=== PATIENT | female | born 1995 | race Caucasian/White ===

== ENCOUNTER 2019-10-27 07:21 | Day surgery (SDC) | payer BC ==
[~2019-10-27 07:21] MED LIST: Lactated Ringers 1,000 ML IV SCH
[2019-10-27] MEDS ORDERED: DIPRIVAN 200 MG/20 ML IV ONE (09:37)
[2019-10-27] MEDS ORDERED: Ketamine HCl 50 MG/ML ONE (09:37)
[2019-10-27] MEDS ORDERED: Xylocaine-Mpf 2% 5 Ml Vial ONE (09:37)
[2019-10-27 10:53] VITALS: O2SAT 99
[2019-10-27 11:06] VITALS: BP 145/60; PULSE 71
--- NOTE | 2019-10-27 12:51 | OP ---
SURGERY DATE/TIME: 10/27/2019 0935 PREOPERATIVE DIAGNOSIS: Abdominal pain. POSTOPERATIVE DIAGNOSES: 1) Abdominal pain. 2) Very small sliding hiatal hernia less than 1 cm. 3) Anal fistula. PROCEDURES: 1) EGD. 2) Colonoscopy. SURGEON: Jack Wong M.D. ANESTHESIA: MAC. SPECIMENS: 1) Duodenum; rule out celiac. 2) Random colon biopsy. 3) Stool for Clostridium difficile, culture, ova and parasite. HISTORY: The patient is a 24 year-old female describing periumbilical-abdominal pain. She also has some heartburn and reflux. She describes constipation alternating with diarrhea up to five loose stools per day. She actually had improvement of her symptoms during the bowel prep. The patient elected to proceed. FINDINGS: 1) Very small, less than 1 cm sliding hiatal hernia. EGD otherwise normal. 2) Colonoscopy normal in appearance. Terminal ileum was normal. Random colonic biopsies were taken. There was a small, what looked like anal fistula, that was very superficial. DESCRIPTION OF PROCEDURE: The patient was brought to the endoscopy suite. MAC anesthesia was induced. Endoscope was advanced in the mouth, advanced to the third portion of duodenum. Duodenum was totally normal. Duodenal biopsy was taken to rule out celiac. The antrum was normal. There was normal stomach. The scope was retroflexed. There was a tiny, less than 1 cm sliding hiatal hernia. The gastroesophageal junction looked normal. The scope was withdrawn. The esophagus was normal. The patient was repositioned. Anal exam was performed. Externally she had some skin tags and a very superficial appearing fistula. Digital rectal exam otherwise was normal. Colonoscope was inserted. This was advanced all the way to the terminal ileum. Terminal ileum was normal. Scope was withdrawn greater than 6 minutes. Random biopsies were taken throughout the colon, sigmoid, rectum and sent for pathology. Stool sample was also taken and sent for stool studies. The entire examined colon was normal. There was good preparation. The patient tolerated the procedure well and taken to recovery room in good condition.
[2019-10-27 15:29] LABS: 027 TOX PROD PRESUMPTIVE NEGATIVE (NEGATIVE); TOXIGENIC C. DIFF ORG NEGATIVE (NEGATIVE)
[2019-10-29 12:47] LABS: Source: Feces
[2019-10-29 14:13] LABS: Giardia Antigen EIA Negative (Negative)
== END 2019-10-27 11:05 | disposition home or self-care (01) ==
LOC: SDC 07:21
PROVIDERS: ATTEND Surgery
DX: R10.9 Unspecified abdominal pain (principal); K44.9 Diaphragmatic hernia without obstruction or gangrene; K60.4 Rectal fistula; R12 Heartburn; R14.0 Abdominal distension (gaseous)
CPT/HCPCS: 36415; 84703; 87045; 87046; 87177; 87209; 87335; 87493; 88305; J2704

== ENCOUNTER 2020-10-12 15:50 | Observation (INO) | payer OTHER ==
[2020-10-12 16:37] LABS: Absolute Neutrophil Ct (ANC) 7.46 (1.4-6.9); BASOPHIL % 0.2 % (0.0-0.4); Basophil (Absolute #) 0.02 (0-0.4); Eosinophil % 2.6 % (0.00-5.0); Eosinophil (Absolute #) 0.25 (0-0.5); Hematocrit 36.7 % (35-47); Lymphocyte (Absolute #) 1.31 (1.0-4.6); Lymphocytes % 13.6 % (24.0-44.0); Mean Cell Volume 96.6 fl (78-100); Mean Corpuscular Hemoglobin 31.6 pg (26-32); Mean Corpuscular Hgb Concent. 32.7 g/dl (32-36); Mean Platelet Volume 11.4 fl (7.5-11.0); Monocyte (Absolute #) 0.58 (0.0-1.3); Neutrophil % 77.6 % (36.0-66.0); Platelet Count 171 K/mm3 (150-450); Red Cell Distribution Width 13.5 % (11.5-14.0); White Blood Count 9.6 K/mm3 (4.0-10.5)
[2020-10-12 16:54] LABS: Amphetamine,Urine NEGATIVE (NEGATIVE); Barbiturate,Urine NEGATIVE (NEGATIVE); Benzodiazepine,Urine NEGATIVE (NEGATIVE); Cocaine,Urine NEGATIVE (NEGATIVE); Methadone,Urine NEGATIVE (NEGATIVE); Opiate,Urine NEGATIVE (NEGATIVE); PCP,Urine NEGATIVE (NEGATIVE); THC,Urine NEGATIVE (NEGATIVE)
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
[2020-10-12 17:17] VITALS: BP 129/67; PULSE 87; O2SAT 100
== END 2020-10-12 18:19 | disposition home or self-care (01) ==
LOC: OB 15:50
PROVIDERS: ADMIT Obstetrics & Gynecology; ATTEND Obstetrics & Gynecology
DX: Z34.02 Encounter for supervision of normal first pregnancy, second trimester (principal); Z3A.21 21 weeks gestation of pregnancy; V49.9XXA Car occupant (driver) (passenger) injured in unspecified traffic accident, initial encounter
CPT/HCPCS: 36415; 76816; 80307; 85025

== ENCOUNTER 2021-01-23 13:56 | Observation (INO) | payer OTHER, SELFPAY ==
[2021-01-23 14:44] LABS: Hemoglobin 12.6 gm/dl (12.0-16.0); Mean Cell Volume 94.2 fl (78-100); Mean Corpuscular Hemoglobin 30.4 pg (26-32); Mean Corpuscular Hgb Concent. 32.3 g/dl (32-36); Platelet Count 169 K/mm3 (150-450); Red Blood Count 4.14 M/mm3 (4.1-5.4); White Blood Count 11.7 K/mm3 (4.0-10.5)
--- NOTE | 2021-01-23 15:12 | XRAY ---
Indication: -induced hypertension. Ultrasound biophysical profile exam performed. Single intrauterine with heart rate 120 BPM. Incidental partial nuchal cord. Four-quadrant THOMAS is 5.1 cm. 2 points given for breathing, movements, tone, and qualitative amniotic fluid volume. Impression: Total biophysical profile score 8 out of 8. Incidental partial nuchal cord.
[2021-01-23 17:15] LABS: ALBUMIN 3.6 g/dL (3.5-5.0); ALKALINE PHOSPHATASE 141 U/L (38-126); ANION GAP 13.3 MEQ/L (5-15); BLOOD UREA NITROGEN 9 mg/dL (7-17); CHLORIDE 105 mmol/L (98-107); Calcium 9.1 mg/dL (8.4-10.2); Carbon Dioxide 22 mmol/L (22-30); Creatinine 1 0.71 mg/dL (0.52-1.04); EST GLOMERULAR FILTRATION RATE > 60.0 ML/MIN; Glucose 84 mg/dL (74-106); SGOT/AST 20 U/L (14-36); SGPT/ALT 14 U/L (0-35); SODIUM 136 mmol/L (137-145); Total Protein 6.6 g/dL (6.3-8.2); Uric Acid 5.4 mg/dL (2.6-6.0)
[2021-01-23 18:05] LABS: Creatinine, Urine Random 115.4 mg/dl
[2021-01-23 20:03] VITALS: BP 140/77; PULSE 78
== END 2021-01-23 17:05 | disposition home or self-care (01) ==
LOC: OB 13:56 → UNDOADMOB 13:56 → UNDODISOB 17:05
PROVIDERS: ADMIT Family Medicine; ATTEND Family Medicine
DX: Z34.83 Encounter for supervision of other normal pregnancy, third trimester (principal)
CPT/HCPCS: 36415; 59025; 76818; 80053; 82570; 84156; 84550; 85027; G0378

== ENCOUNTER 2021-01-25 15:23 | Observation (INO) | payer OTHER, SELFPAY ==
[2021-01-25 16:27] VITALS: BP 133/77; PULSE 83; O2SAT 98
--- NOTE | 2021-01-25 16:28 | XRAY ---
Indication: Oligohydramnios. Limited OB ultrasound performed to evaluate THOMAS. Single intrauterine with heart rate 178 BPM. Four-quadrant THOMAS is 7.8 cm, previously 5.1 cm on January 23, 2021.
== END 2021-01-25 17:00 | disposition home or self-care (01) ==
LOC: OB 15:23
PROVIDERS: ADMIT Family Medicine; ATTEND Family Medicine
DX: Z34.03 Encounter for supervision of normal first pregnancy, third trimester (principal); Z3A.36 36 weeks gestation of pregnancy
CPT/HCPCS: 59025; 76815; G0378

== ENCOUNTER 2021-01-30 10:58 | Observation (INO) | payer OTHER, SELFPAY ==
[2021-01-30 12:02] LABS: Absolute Neutrophil Ct (ANC) 7.24 (1.4-6.9); BASOPHIL % 0.2 % (0.0-0.4); Basophil (Absolute #) 0.02 (0-0.4); Eosinophil % 4.9 % (0.00-5.0); Eosinophil (Absolute #) 0.49 (0-0.5); Hematocrit 37.8 % (35-47); Hemoglobin 12.2 gm/dl (12.0-16.0); Lymphocyte (Absolute #) 1.46 (1.0-4.6); Lymphocytes % 14.6 % (24.0-44.0); Mean Cell Volume 93.8 fl (78-100); Mean Corpuscular Hemoglobin 30.3 pg (26-32); Mean Corpuscular Hgb Concent. 32.3 g/dl (32-36); Mean Platelet Volume 11.8 fl (7.5-11.0); Monocyte (Absolute #) 0.77 (0.0-1.3); Monocytes % 7.7 % (0.0-12.0); Neutrophil % 72.6 % (36.0-66.0); Platelet Count 152 K/mm3 (150-450); Red Blood Count 4.03 M/mm3 (4.1-5.4); Red Cell Distribution Width 14.2 % (11.5-14.0)
[2021-01-30 12:21] LABS: ALBUMIN 3.2 g/dL (3.5-5.0); ALKALINE PHOSPHATASE 129 U/L (38-126); ANION GAP 10.9 MEQ/L (5-15); BLOOD UREA NITROGEN 5 mg/dL (7-17); CHLORIDE 107 mmol/L (98-107); Calcium 8.5 mg/dL (8.4-10.2); Carbon Dioxide 20 mmol/L (22-30); Creatinine 1 0.58 mg/dL (0.52-1.04); EST GLOMERULAR FILTRATION RATE > 60.0 ML/MIN; Glucose 84 mg/dL (74-106); Potassium 3.8 mmol/L (3.5-5.1); SGOT/AST 16 U/L (14-36); SGPT/ALT 13 U/L (0-35); SODIUM 134 mmol/L (137-145); Total Protein 5.9 g/dL (6.3-8.2); Uric Acid 4.9 mg/dL (2.6-6.0)
--- NOTE | 2021-01-30 12:22 | XRAY ---
Indication: well-being. Comparison: January 23, 2021. Ultrasound biophysical profile exam performed. Single intrauterine with heart rate 154 BPM. Four-quadrant THOMAS is 7.8 cm, largest pocket 4 cm. 2 points given for breathing, movements, tone, and qualitative amniotic fluid volume. Impression: Total biophysical profile score remains 8 out of 8.
[2021-01-30 12:44] LABS: Creatinine, Urine Random 54.8 mg/dl
[2021-01-30 13:04] LABS: Amphetamine,Urine NEGATIVE (NEGATIVE); Barbiturate,Urine NEGATIVE (NEGATIVE); Benzodiazepine,Urine NEGATIVE (NEGATIVE); Cocaine,Urine NEGATIVE (NEGATIVE); Methadone,Urine NEGATIVE (NEGATIVE); Opiate,Urine NEGATIVE (NEGATIVE); PCP,Urine NEGATIVE (NEGATIVE); THC,Urine NEGATIVE (NEGATIVE)
[2021-01-30 16:41] VITALS: BP 135/80; PULSE 81; O2SAT 97
== END 2021-01-30 14:00 | disposition home or self-care (01) ==
LOC: OB 10:58
PROVIDERS: ADMIT Family Medicine; ATTEND Family Medicine
DX: O99.213 Obesity complicating pregnancy, third trimester (principal); Z3A.36 36 weeks gestation of pregnancy
CPT/HCPCS: 36415; 59025; 76818; 80053; 80307; 82570; 84156; 84550; 85025; 87081; G0378

== ENCOUNTER 2021-02-02 09:46 | Observation (INO) | payer OTHER, SELFPAY ==
[2021-02-02 10:14] VITALS: BP 138/65; PULSE 75
== END 2021-02-02 10:25 | disposition home or self-care (01) ==
LOC: OB 09:46
PROVIDERS: ADMIT Family Medicine; ATTEND Family Medicine
DX: O99.213 Obesity complicating pregnancy, third trimester (principal); Z3A.37 37 weeks gestation of pregnancy
CPT/HCPCS: 59025; G0378

== ENCOUNTER 2021-02-06 10:09 | Observation (INO) | payer OTHER, SELFPAY ==
[2021-02-06 11:24] VITALS: BP 136/78; PULSE 74
--- NOTE | 2021-02-06 11:30 | XRAY ---
Indication: well-being. Comparison: January 30, 2021. Ultrasound biophysical profile exam performed. Again single intrauterine with heart rate 150 BPM. Four-quadrant THOMAS is 8.8 cm, largest pocket 3.6 cm. 2 points given for breathing, movements, tone, and qualitative amniotic fluid volume. Impression: Total biophysical profile score remains 8 out of 8.
[2021-02-06 12:28] LABS: Absolute Neutrophil Ct (ANC) 6.63 (1.4-6.9); BASOPHIL % 0.3 % (0.0-0.4); Basophil (Absolute #) 0.03 (0-0.4); Eosinophil % 3.7 % (0.00-5.0); Eosinophil (Absolute #) 0.33 (0-0.5); Hematocrit 36.4 % (35-47); Hemoglobin 11.9 gm/dl (12.0-16.0); Lymphocyte (Absolute #) 1.37 (1.0-4.6); Lymphocytes % 15.2 % (24.0-44.0); Mean Cell Volume 93.8 fl (78-100); Mean Corpuscular Hemoglobin 30.7 pg (26-32); Mean Corpuscular Hgb Concent. 32.7 g/dl (32-36); Mean Platelet Volume 12.3 fl (7.5-11.0); Monocyte (Absolute #) 0.68 (0.0-1.3); Monocytes % 7.5 % (0.0-12.0); Neutrophil % 73.3 % (36.0-66.0); Platelet Count 162 K/mm3 (150-450); Red Blood Count 3.88 M/mm3 (4.1-5.4); Red Cell Distribution Width 14.1 % (11.5-14.0)
[2021-02-06 12:29] LABS: Creatinine, Urine Random 52.3 mg/dl
[2021-02-06 12:53] LABS: ALBUMIN 3.2 g/dL (3.5-5.0); ALKALINE PHOSPHATASE 133 U/L (38-126); ANION GAP 13.4 MEQ/L (5-15); BLOOD UREA NITROGEN 9 mg/dL (7-17); CHLORIDE 105 mmol/L (98-107); Carbon Dioxide 21 mmol/L (22-30); Creatinine 1 0.69 mg/dL (0.52-1.04); EST GLOMERULAR FILTRATION RATE > 60.0 ML/MIN; Glucose 75 mg/dL (74-106); Potassium 4.3 mmol/L (3.5-5.1); SGOT/AST 25 U/L (14-36); SGPT/ALT 12 U/L (0-35); SODIUM 135 mmol/L (137-145)
== END 2021-02-06 13:15 | disposition home or self-care (01) ==
LOC: OB 10:09
PROVIDERS: ADMIT Family Medicine; ATTEND Family Medicine
DX: O99.213 Obesity complicating pregnancy, third trimester (principal); Z3A.37 37 weeks gestation of pregnancy
CPT/HCPCS: 36415; 59025; 76819; 80053; 82570; 84156; 84550; 85025; G0378

== ENCOUNTER 2021-05-18 03:04 | Emergency (ER) | payer BC, OTHER, SELFPAY ==
[2021-05-18] MEDS ORDERED: DECADRON 10MG INJ. IV ONE (03:48)
--- NOTE | 2021-05-18 04:00 | ERPHSYRPT ---
<CAREY VALENCIA - Last Filed: 05/18/21 08:34> - History of Present Illness Source: patient Exam Limitations: no limitations Timing/Duration: week(s) (1), constant, gradual onset, worse Cough Quality/Degree: moderate, dry cough Possible Cause: illness exposure Modifying Factors: Worsens With: coughing, deep breath, exertion Associated Symptoms: fever, chills, chest pain/soreness, cough, headache, nasal congestion, shortness of breath, sinus infection, sore throat <ALCON GARCIA - Last Filed: 05/19/21 21:12> - History of Present Illness Time Seen by Provider: 05/18/21 03:46 Physician History: 26-year-old female with history of hypothyroidism, unvaccinated for COVID-19 pr esented in the ER with 1 week history of flulike symptoms with generalized body aches fatigue tiredness, low-grade fever chills, nonproductive cough and now having chest tightness with some pressure and pain in the shoulder blade area. Patient has history of asthma and has been using breathing treatment with some help. She has loose stool but no nausea or vomiting. Denies any abdominal pain. (ALCON GARCIA) Allergies/Adverse Reactions: egg Allergy (Severe, Verified 05/18/21 04:04) Difficulty Breathing Triggers Asthma Home Medications: Levothyroxine Sodium 100 Mcg [Synthroid 100 Mcg] 200 mcg PO DAILY 10/12/20 [History] Albuterol Sulfate [Albuterol Sulfate Hfa] 2 puffs IH Q4-6HPRN PRN 05/18/21 [History] Travel Risk - Vaccine Status Have you recieved a Covid-19 vaccination: No <ALCON GARCIA - Last Filed: 05/19/21 21:12> - Review of Systems Constitutional: Fever, Chills, Fatigue, Weakness Eyes: No Symptoms Ears, Nose, & Throat: Nose Congestion, Throat Swelling Respiratory: Cough, Dyspnea, Wheezing Cardiac: Chest Pain Abdominal/Gastrointestinal: Diarrhea Genitourinary Symptoms: No Symptoms Musculoskeletal: Myalgias Neurological: Headache Psychological: No Symptoms Endocrine: No Symptoms Hematologic/Lymphatic: No Symptoms Immunological/Allergic: No Symptoms <ALCON GARCIA - Last Filed: 05/19/21 21:12> - Past Medical History Pertinent Past Medical History: Yes Neurological History: No Pertinent History ENT History: No Pertinent History Cardiac History: No Pertinent History, High Cholesterol Respiratory History: Asthma Endocrine Medical History: Hypothyroidism Musculoskeletal History: No Pertinent History GI Medical History: GERD History: No Pertinent History Psycho-Social History: Anxiety Female Reproductive Disorders: No Pertinent History - Past Surgical History Past Surgical History: Yes Neuro Surgical History: No Pertinent History Cardiac: No Pertinent History Respiratory: No Pertinent History Gastrointestinal: No Pertinent History Genitourinary: No Pertinent History Musculoskeletal: No Pertinent History Female Surgical History: No Pertinent History Other Surgical History: thyroidectomy - Social History Smoking Status: Never smoker Exposure to second hand smoke: No Drug Use: none - Female History Hx Now: (unkn) <ALCON GARCIA - Last Filed: 05/19/21 21:12> - Physical Exam General Appearance: no apparent distress, alert Eye Exam: PERRL/EOMI, eyes nml inspection Ears, Nose, Throat Exam: moist mucous membranes, pharyngeal erythema Neck Exam: normal inspection, non-tender, supple, full range of motion Respiratory Exam: diminished breath sounds, rhonchi, wheezing Cardiovascular Exam: regular rate/rhythm, normal heart sounds Gastrointestinal/Abdomen Exam: soft, normal bowel sounds, No tenderness Back Exam: normal inspection, normal range of motion Extremity Exam: normal inspection, normal range of motion Neurologic Exam: alert, oriented x 3, cooperative Skin Exam: normal color SpO2 Interpretation: normal SpO2: 97 O2 Delivery: Room Air <ALCON GARCIA - Last Filed: 05/19/21 21:12> - Nursing Vital Signs Nursing Vital Signs: Initial Vital Signs Temperature 97.8 F 05/18/21 03:04 Pulse Rate 91 H 05/18/21 03:04 Respiratory Rate 22 05/18/21 03:04 Blood Pressure 119/66 05/18/21 03:04 O2 Sat by Pulse Oximetry 97 05/18/21 03:04 Pain Scale Pain Intensity 0 - Course EKG Interpreted by Me: RATE (95), Sinus Rhythm, NORMAL AXIS, NORMAL INTERVALS, Non-specific ST Changes <ALCON GARCIA - Last Filed: 05/19/21 21:12> Ordered Tests: Medication Summary Discontinued Medications Generic Name Dose Route Start Last Admin Trade Name Freq PRN Reason Stop Dose Admin Dexamethasone Sodium Phosphate 6 mg 05/18/21 03:48 05/18/21 04:11 Dexamethasone Sod Phosphate 10 Mg/Ml IV 05/18/21 03:49 6 mg STAT ONE Administration Dexamethasone Sodium Phosphate Confirm 05/18/21 04:09 Dexamethasone Sod Phosphate 10 Mg/Ml Administered 05/18/21 04:10 Dose 10 mg .ROUTE .STK-MED ONE Sodium Chloride 500 mls @ 500 mls/hr 05/18/21 07:13 05/18/21 08:37 Sodium Chloride 0.9% 500 Ml IV 05/18/21 08:12 Infused .Q1H ONE Infusion Sodium Chloride Confirm 05/18/21 07:15 Sodium Chloride 0.9% 500 Ml Administered 05/18/21 07:16 Dose 500 mls @ ud IV .STK-MED ONE Lab/Rad Data: Laboratory Result Diagrams 05/18/21 03:52 05/18/21 03:52 Laboratory Results 05/18/21 05/18/21 05/18/21 Range/Units 07:30 04:00 03:52 WBC (4.0-10.5) K/mm3 RBC (4.1-5.4) M/mm3 Hgb (12.0-16.0) gm/dl Hct (35-47) % MCV (78-100) fl MCH (26-32) pg MCHC (32-36) g/dl RDW (11.5-14.0) % Plt Count (150-450) K/mm3 MPV (7.5-11.0) fl Gran % (36.0-66.0) % Eos # (Auto) (0-0.5) Absolute Lymphs (auto) (1.0-4.6) Absolute Monos (auto) (0.0-1.3) Lymphocytes % (24.0-44.0) % Monocytes % (0.0-12.0) % Eosinophils % (0.00-5.0) % Basophils % (0.0-0.4) % Absolute Granulocytes (1.4-6.9) Basophils # (0-0.4) D-Dimer (215-500) ng/mL Sodium (137-145) mmol/L Potassium (3.5-5.1) mmol/L Chloride (98-107) mmol/L Carbon Dioxide (22-30) mmol/L Anion Gap (5-15) MEQ/L BUN (7-17) mg/dL Creatinine (0.52-1.04) mg/dL Estimated GFR ML/MIN Glucose (74-106) mg/dL Lactic Acid (0.4-2.0) Calcium (8.4-10.2) mg/dL Magnesium (1.6-2.3) mg/dL Total Bilirubin (0.2-1.3) mg/dL AST (14-36) U/L ALT (0-35) U/L Alkaline Phosphatase (38-126) U/L Troponin I < 0.012 < 0.012 (0.000-0.034) ng/mL Serum Total Protein (6.3-8.2) g/dL Albumin (3.5-5.0) g/dL Urine Color (YELLOW) Urine Appearance (CLEAR) Urine pH (5-6) Ur Specific [place] (1.005-1.025) Urine Protein (Negative) Urine Ketones (NEGATIVE) Urine Blood (0-5) Bradford/ul Urine Nitrite (NEGATIVE) Urine Bilirubin (NEGATIVE) Urine Urobilinogen (0-1) mg/dL Ur Leukocyte Esterase (NEGATIVE) Urine WBC (Auto) (0-5) /HPF Urine RBC (Auto) (0-2) /HPF U Epithel Cells (Auto) (FEW) /HPF Urine Bacteria (Auto) (NEGATIVE) /HPF Urine Culture Reflexed (NO) Urine Glucose (NEGATIVE) mg/dL Urine HCG, Qual NEGATIVE (Negative) Influenza Type A Ag NEGATIVE (NEGATIVE) Influenza Type B Ag NEGATIVE (NEGATIVE) 05/18/21 05/18/21 05/18/21 Range/Units 03:52 03:52 03:52 WBC (4.0-10.5) K/mm3 RBC (4.1-5.4) M/mm3 Hgb (12.0-16.0) gm/dl Hct (35-47) % MCV (78-100) fl MCH (26-32) pg MCHC (32-36) g/dl RDW (11.5-14.0) % Plt Count (150-450) K/mm3 MPV (7.5-11.0) fl Gran % (36.0-66.0) % Eos # (Auto) (0-0.5) Absolute Lymphs (auto) (1.0-4.6) Absolute Monos (auto) (0.0-1.3) Lymphocytes % (24.0-44.0) % Monocytes % (0.0-12.0) % Eosinophils % (0.00-5.0) % Basophils % (0.0-0.4) % Absolute Granulocytes (1.4-6.9) Basophils # (0-0.4) D-Dimer 501 H (215-500) ng/mL Sodium 136 L (137-145) mmol/L Potassium 3.8 (3.5-5.1) mmol/L Chloride 107 (98-107) mmol/L Carbon Dioxide 19 L (22-30) mmol/L Anion Gap 13.4 (5-15) MEQ/L BUN 6 L (7-17) mg/dL Creatinine 0.86 (0.52-1.04) mg/dL Estimated GFR > 60.0 ML/MIN Glucose 123 H (74-106) mg/dL Lactic Acid (0.4-2.0) Calcium 7.9 L (8.4-10.2) mg/dL Magnesium 2.0 (1.6-2.3) mg/dL Total Bilirubin 0.70 (0.2-1.3) mg/dL AST 30 (14-36) U/L ALT 18 (0-35) U/L Alkaline Phosphatase 91 (38-126) U/L Troponin I (0.000-0.034) ng/mL Serum Total Protein 7.1 (6.3-8.2) g/dL Albumin 4.0 (3.5-5.0) g/dL Urine Color YELLOW (YELLOW) Urine Appearance SLIGHTLY CLOUDY (CLEAR) Urine pH 6.0 (5-6) Ur Specific [place] 1.009 (1.005-1.025) Urine Protein 30 (Negative) Urine Ketones NEGATIVE (NEGATIVE) Urine Blood LARGE (0-5) Bradford/ul Urine Nitrite NEGATIVE (NEGATIVE) Urine Bilirubin NEGATIVE (NEGATIVE) Urine Urobilinogen NEGATIVE (0-1) mg/dL Ur Leukocyte Esterase NEGATIVE (NEGATIVE) Urine WBC (Auto) 26-50 (0-5) /HPF Urine RBC (Auto) >101 (0-2) /HPF U Epithel Cells (Auto) RARE (FEW) /HPF Urine Bacteria (Auto) FEW (NEGATIVE) /HPF Urine Culture Reflexed YES (NO) Urine Glucose NEGATIVE (NEGATIVE) mg/dL Urine HCG, Qual (Negative) Influenza Type A Ag (NEGATIVE) Influenza Type B Ag (NEGATIVE) 05/18/21 05/18/21 Range/Units 03:52 03:46 WBC 3.8 L (4.0-10.5) K/mm3 RBC 3.87 L (4.1-5.4) M/mm3 Hgb 11.1 L (12.0-16.0) gm/dl Hct 35.2 (35-47) % MCV 91.0 (78-100) fl MCH 28.7 (26-32) pg MCHC 31.5 L (32-36) g/dl RDW 14.6 H (11.5-14.0) % Plt Count 132 L (150-450) K/mm3 MPV 10.5 (7.5-11.0) fl Gran % 78.0 H (36.0-66.0) % Eos # (Auto) 0 (0-0.5) Absolute Lymphs (auto) 0.66 L (1.0-4.6) Absolute Monos (auto) 0.18 (0.0-1.3) Lymphocytes % 17.3 L (24.0-44.0) % Monocytes % 4.7 (0.0-12.0) % Eosinophils % 0.0 (0.00-5.0) % Basophils % 0.0 (0.0-0.4) % Absolute Granulocytes 2.97 (1.4-6.9) Basophils # 0 (0-0.4) D-Dimer (215-500) ng/mL Sodium (137-145) mmol/L Potassium (3.5-5.1) mmol/L Chloride (98-107) mmol/L Carbon Dioxide (22-30) mmol/L Anion Gap (5-15) MEQ/L BUN (7-17) mg/dL Creatinine (0.52-1.04) mg/dL Estimated GFR ML/MIN Glucose (74-106) mg/dL Lactic Acid 1.1 (0.4-2.0) Calcium (8.4-10.2) mg/dL Magnesium (1.6-2.3) mg/dL Total Bilirubin (0.2-1.3) mg/dL AST (14-36) U/L ALT (0-35) U/L Alkaline Phosphatase (38-126) U/L Troponin I (0.000-0.034) ng/mL Serum Total Protein (6.3-8.2) g/dL Albumin (3.5-5.0) g/dL Urine Color (YELLOW) Urine Appearance (CLEAR) Urine pH (5-6) Ur Specific [place] (1.005-1.025) Urine Protein (Negative) Urine Ketones (NEGATIVE) Urine Blood (0-5) Bradford/ul Urine Nitrite (NEGATIVE) Urine Bilirubin (NEGATIVE) Urine Urobilinogen (0-1) mg/dL Ur Leukocyte Esterase (NEGATIVE) Urine WBC (Auto) (0-5) /HPF Urine RBC (Auto) (0-2) /HPF U Epithel Cells (Auto) (FEW) /HPF Urine Bacteria (Auto) (NEGATIVE) /HPF Urine Culture Reflexed (NO) Urine Glucose (NEGATIVE) mg/dL Urine HCG, Qual (Negative) Influenza Type A Ag (NEGATIVE) Influenza Type B Ag (NEGATIVE) - Progress Air Movement: good Blood Culture(s) Obtained: Yes Counseled pt/family regarding: lab results, diagnosis, need for follow-up, rad results <CAREY VALENCIA - Last Filed: 05/18/21 08:34> - Progress Progress Note: 05/18/21 08:29 CTA of the chest shows picture consistent with COVID-19 pneumonia. There are no pulmonary emboli. (CAREY VALENCIA) - Departure Departure Disposition: Home Critical Care Time: No <CAREY VALENCIA - Last Filed: 05/18/21 08:34> <ALCON GARCIA - Last Filed: 05/19/21 21:12> - Departure Clinical Impression: Pneumonia due to COVID-19 virus, UTI (urinary tract infection) Condition: Stable Referrals: VICTOR MANUEL ZHANG [Primary Care Provider] - Follow up/PCP as directed Instructions: Cough, Adult (DC), Coronavirus Disease 2019 (COVID-19) (DC) Additional Instructions: Drink plenty of fluids. Quarantine yourself per Covid instructions. Return to the emergency department if symptoms worsen. Take your medication as prescribed. Continue your albuterol inhaler at home. Prescriptions: Hydrocodone/Acetaminophen [Hydrocodone-Acetamn 7.5-325/15] 10 ml PO Q8H PRN PRN #120 ml MDD 30 ml PRN Reason: Cough Prednisone 10 mg [Deltasone 10 mg] 10 mg PO TID #12 tablet Levofloxacin [Levaquin 500 MG Tablet] 500 mg PO DAILY #7 tablet
[2021-05-18] MEDS ORDERED: DECADRON 10MG INJ. ONE (04:09)
[2021-05-18 04:35] LABS: Absolute Neutrophil Ct (ANC) 2.97 (1.4-6.9); Basophil (Absolute #) 0 (0-0.4); Eosinophil (Absolute #) 0 (0-0.5); Hematocrit 35.2 % (35-47); Hemoglobin 11.1 gm/dl (12.0-16.0); Lymphocyte (Absolute #) 0.66 (1.0-4.6); Lymphocytes % 17.3 % (24.0-44.0); Mean Corpuscular Hemoglobin 28.7 pg (26-32); Mean Corpuscular Hgb Concent. 31.5 g/dl (32-36); Mean Platelet Volume 10.5 fl (7.5-11.0); Monocyte (Absolute #) 0.18 (0.0-1.3); Monocytes % 4.7 % (0.0-12.0); Platelet Count 132 K/mm3 (150-450); Red Blood Count 3.87 M/mm3 (4.1-5.4); Red Cell Distribution Width 14.6 % (11.5-14.0); White Blood Count 3.8 K/mm3 (4.0-10.5)
[2021-05-18 04:53] LABS: ALKALINE PHOSPHATASE 91 U/L (38-126); ANION GAP 13.4 MEQ/L (5-15); BLOOD UREA NITROGEN 6 mg/dL (7-17); CHLORIDE 107 mmol/L (98-107); Calcium 7.9 mg/dL (8.4-10.2); Carbon Dioxide 19 mmol/L (22-30); Creatinine 1 0.86 mg/dL (0.52-1.04); EST GLOMERULAR FILTRATION RATE > 60.0 ML/MIN; Glucose 123 mg/dL (74-106); Potassium 3.8 mmol/L (3.5-5.1); SGOT/AST 30 U/L (14-36); SGPT/ALT 18 U/L (0-35); SODIUM 136 mmol/L (137-145); Total Protein 7.1 g/dL (6.3-8.2)
[2021-05-18 04:56] LABS: Appearance SLIGHTLY CLOUDY (CLEAR); Bacteria FEW /HPF (NEGATIVE); Bilirubin NEGATIVE (NEGATIVE); Blood LARGE Ery/ul (0-5); Epithelial Cells RARE /HPF (FEW); Glucose NEGATIVE (NEGATIVE); Ketones NEGATIVE (NEGATIVE); Leukocyte Esterase NEGATIVE (NEGATIVE); Nitrite NEGATIVE (NEGATIVE); Protein,Urine Dip 30 (Negative); Specific Gravity 1.009 (1.005-1.025); Urobilinogen NEGATIVE mg/dL (0-1); WBC 26-50 /HPF (0-5)
[2021-05-18 04:57] LABS: HCG,QUALITATIVE URINE NEGATIVE (Negative)
[2021-05-18 04:58] LABS: INFLUENZA A NEGATIVE (NEGATIVE); INFLUENZA B NEGATIVE (NEGATIVE)
[2021-05-18 05:00] LABS: RBC >101 /HPF (0-2)
[2021-05-18] MEDS ORDERED: Sodium Chloride 0.9% 500 ML 500 ML IV ONE ×2 (07:13→07:15)
[2021-05-18 08:31] VITALS: BP 126/69; PULSE 84
--- NOTE | 2021-05-18 09:16 | XRAY ---
Indication: Short of breath. Positive Covid 19. Multiple contiguous axial images obtained through the chest using 80 cc Isovue 370 contrast and PE protocol. Comparison: None There is suboptimal opacification of the pulmonary arteries limiting evaluation for pulmonary embolus. No obvious pulmonary embolus. Heart is not enlarged. Aorta is normal in course and caliber. No pathologic mediastinal/hilar lymphadenopathy. Small hiatal hernia. Lungs demonstrates marked diffuse bilateral patchy airspace disease without consolidation/effusion. Bony thorax intact. Limited upper abdomen demonstrates fatty liver and 15 cm splenomegaly. Impression: 1. Pulmonary embolus evaluation limited due to suboptimal contrast opacification. No obvious pulmonary embolus. 2. Marked diffuse bilateral patchy airspace disease favoring Covid 19 pneumonia. 3. Incidental small hiatal hernia, fatty liver, and splenomegaly. Comment: Preliminary interpretation made by [facility] [place]. No critical discrepancy.
[2021-05-19 21:13] VITALS: O2SAT 97
== END 2021-05-18 08:45 | disposition home or self-care (01) ==
LOC: ED 03:04
DX: U07.1 COVID-19 (principal); J12.82 Pneumonia due to coronavirus disease 2019; N39.0 Urinary tract infection, site not specified; M79.10 Myalgia, unspecified site; M53.83 Other specified dorsopathies, cervicothoracic region; R50.9 Fever, unspecified; R05.9 Cough, unspecified; J45.909 Unspecified asthma, uncomplicated; E78.5 Hyperlipidemia, unspecified; Z79.891 Long term (current) use of opiate analgesic; Z79.52 Long term (current) use of systemic steroids
CPT/HCPCS: 36000; 36415; 71260; 80053; 81001; 83605; 83735; 84484; 84703; 85025; 85379; 87040; 87086; 87400; 93005; 93041; 96374; 99284; J1100